=== PATIENT | female | born 1985 | race Hispanic/Latino ===

== ENCOUNTER 2017-01-07 16:01 | Emergency (ER) | payer OTHER, SELFPAY ==
[2017-01-07] MEDS ORDERED: EPINEPHrine 1 MG/10 ML Abboject SYRINGE ONE (16:13)
== END 2017-01-07 17:09 | disposition home or self-care (01) ==
LOC: BURERS 16:01
DX: J11.1 Influenza due to unidentified influenza virus with other respiratory manifestations (principal); J20.9 Acute bronchitis, unspecified
CPT/HCPCS: 94640; J0171; J7620

== ENCOUNTER 2019-11-24 13:45 | Emergency (ER) | payer OTHER, SELFPAY ==
[2019-11-24 14:22] LABS: Bilirubin Small (Negative); Blood, Urine Negative (Negative); Clarity Clear (Clear); Glucose, Urine (Dipstick) Negative (Negative); Leukocyte Negative (Negative); Nitrite Negative (Negative); Protein, Urine (Dipstick) 30 mg/dL (Neg-Trace)
[2019-11-24 14:28] LABS: Bacteria/HPF Rare-Few HPF (None Seen); RBC/HPF 0-3 HPF (0-3); Squamous Epithelial 0-3 HPF (0-3); WBC/HPF 0-3 HPF (0-3)
[2019-11-24 14:37] LABS: Pregnancy Test - Urine (BHCG) POSITIVE (Negative); Pregu Control Background? CLEAR/WHITE (CLR/WHITE); Pregu Control Bar Appear? YES (CONTROL BAR); Specific Gravity 1.015 (1.002-1.036)
[2019-11-24] MEDS ORDERED: Acetaminophen 500 MG TAB ONE (14:49)
[2019-11-24] MEDS ORDERED: Acetaminophen 650 MG Suppository ONE (14:49)
[2019-11-24] MEDS ORDERED: traMADol HCl 50 MG TAB ONE (14:50)
== END 2019-11-24 14:56 | disposition home or self-care (01) ==
LOC: BURERS 13:45
DX: O99.89 Other specified diseases and conditions complicating pregnancy, childbirth and the puerperium (principal); M53.3 Sacrococcygeal disorders, not elsewhere classified
CPT/HCPCS: 81003; 81015; 81025; 99283

== ENCOUNTER 2022-04-18 13:59 | Emergency (ER) | payer OTHER, SELFPAY ==
[2022-04-18] MEDS ORDERED: Dexamethasone 4 MG TAB ONE (14:43)
[2022-04-18] MEDS ORDERED: AMOXicillin 250 MG CAP ONE (14:43)
== END 2022-04-18 14:47 | disposition home or self-care (01) ==
LOC: BURERS 13:59
DX: J02.9 Acute pharyngitis, unspecified (principal)
CPT/HCPCS: 99282; J8540